=== PATIENT | male | born 1970 | race Caucasian/White ===

== ENCOUNTER 2018-02-16 11:51 | Emergency (ER) | payer BC ==
[2018-02-16 12:38] VITALS: BP 131/76
--- NOTE | 2018-02-16 12:43 | UC ---
Throat Pain/Nasal Dewayne HPI - HPI Summary HPI Summary: 48 y/o male presents to the urgent care c/o sinus pain and green nasal discharge since 02/06/2018. Pt reports he has tried Tylenol cold and sinus w/o any improvement. Pt reports symptoms started w/ a common cold. He has also tried the oracio pot w/o any relief of symptoms. sinus pain is 4/10 w/ a lot of PND, Rt ear pain and a dry cough. Pt denies fever, SOB, chest pain, abdominal pain, N/V/D, dizziness. - History of Current Complaint Chief Complaint: UCRespiratory Stated Complaint: SINUSES Time Seen by Provider: 02/16/18 12:39 Hx Obtained From: Patient Onset/Duration: Gradual Onset, Lasting Days - 10 days, Still Present, Worse Since - 2 days Severity: Moderate Pain Intensity: 4 Pain Scale Used: 0-10 Numeric Cough: Nonproductive Associated Signs & Symptoms: Positive: Sinus Discomfort, Nasal Discharge. Negative: Dysphagia, Fever - Epiglottits Risk Factors Epiglottis Risk Factors: Negative - Allergies/Home Medications Allergies/Adverse Reactions: Allergies Allergy/AdvReac Type Severity Reaction Status Date / Time potatoe Allergy Rash, Uncoded 03/28/16 13:45 Difficulty Breathing PMH/Surg Hx/FS Hx/Imm Hx Previously Healthy: Yes Cardiovascular History: Hypertension Other Neurological History: MS - Surgical History Surgical History: None - Family History Known Family History: Positive: Cardiac Disease, Diabetes - Social History Occupation: Employed Full-time Lives: With Family Alcohol Use: Occasionally Substance Use Type: None Smoking Status (MU): Never Smoked Tobacco - Immunization History Most Recent Influenza Vaccination: February 2016 Review of Systems Constitutional: Negative Skin: Negative Eyes: Negative ENT: Ear Ache - Rt ear pain, Nasal Discharge - green, Sinus Congestion, Sinus Pain/Tenderness Respiratory: Cough - dry Cardiovascular: Negative Gastrointestinal: Negative Genitourinary: Negative Motor: Negative Neurovascular: Negative Musculoskeletal: Negative Neurological: Headache Psychological: Negative Is Patient Immunocompromised?: No All Other Systems Reviewed And Are Negative: Yes Physical Exam - Summary Physical Exam Summary: Vitals: reviewed General: Well developed, well-nourished male patient with NAD. Head and face: Normocephalic and atraumatic, Positive tenderness over the frontal and maxillary sinuses.. Eyes: PERRLA, EOMI x 2. Normal conjunctiva. No eye discharge. ENT: Ears and TM with normal limits. Nose: edematous and erythematous nasal mucosa with with yellowish discharge and erythematous mucosa. Pharynx with erythema, no exudate. +green PND Neck: Supple, no JVD, no carotid bruits and no lymphadenopathy. Lungs: clear, no rales, no rhonchi, no wheezes. CVS: RRR, S1 and S2 present no murmurs or gallops appreciated. Abdomen: soft nontender with positive bowel sounds. Extremities: no edema noted. Neuro: WNL. Skin: warm and dry Triage Information Reviewed: Yes Vital Signs: Initial Vital Signs Temp 97.9 F 02/16/18 12:33 Pulse 68 02/16/18 12:33 Resp 14 02/16/18 12:33 BP 131/76 02/16/18 12:33 Pulse Ox 100 02/16/18 12:33 Throat Pain/Nasal Course/Dx - Course Course Of Treatment: 48 y/o male presents to the urgent care c/o sinus pain and green nasal discharge since 02/06/2018. Pt reports he has tried Tylenol cold and sinus w/o any improvement. Pt reports symptoms started w/ a common cold. He has also tried the oracio pot w/o any relief of symptoms. sinus pain is 4/10 w/ a lot of PND, Rt ear pain and a dry cough. Pt denies fever, SOB, chest pain, abdominal pain, N/V/D, dizziness. Hx obtained. Pt w/ Acute bacterial sinusitis on examination. Pt with 10 days of symptoms getting worse. Pt Rx Augmentin PO and flonase nasal spray. Discharge instructions explained to Pt. Advised to Return to the clinic or PCP if symptoms do not improve.Pt understood and agreed with plan of care. - Differential Dx/Diagnosis Differential Diagnosis/HQI/PQRI: Influenza, Laryngitis, Pharyngitis, Sinusitis, URI Provider Diagnoses: 1- Acute bacterial sinusitis Discharge - Sign-Out/Discharge Documenting (check all that apply): Patient Departure - D/C home All imaging exams completed and their final reports reviewed: No Studies - Discharge Plan Condition: Stable Disposition: HOME Prescriptions: Amoxicillin/Clavulanate TAB* [Augmentin TAB 875*] 875 mg PO BID #20 tab Fluticasone NASAL SPRAY 50MCG* [Flonase NASAL SPRAY 50MCG*] 2 spray BOTH NARES DAILY #1 btl Patient Education Materials: Sinusitis (ED) Referrals: John Brasher DO [Primary Care Provider] - 3 Days Additional Instructions: 1- Please increase fluid intake and rest. take full course of antibiotic to avoid resistance 2-Use Flonase as directed to help drain fluid. Also buy saline drops to clear sinuses 3-Return to the clinic or PCP in 3 days if symptoms do not improve for further management and treatment - Billing Disposition and Condition Condition: STABLE Disposition: Home
== END 2018-02-16 13:12 | disposition home or self-care (01) ==
LOC: UCCORT 11:51
DX: J01.90 Acute sinusitis, unspecified (principal); B96.89 Other specified bacterial agents as the cause of diseases classified elsewhere; I10 Essential (primary) hypertension
CPT/HCPCS: 99212; G0463

== ENCOUNTER 2018-06-02 12:46 | Day surgery (SDC) | payer BC ==
[~2018-06-02 12:46] MED LIST: Buffered Lidocaine 1% SYRIN* 1 ML/SYRINGE INTRADERM ONE; Lactated Ringers 1000 ML Bag* 1,000 ML IV SCH
[2018-06-02] MEDS ORDERED: Lidocaine 2% PF * 5 ML VIAL ONE (14:38)
[2018-06-02] MEDS ORDERED: Succinylcholine* 20 MG/ML 10 ML VIAL ONE (14:39)
[2018-06-02] MEDS ORDERED: fentaNYL* 50 MCG/ML 2 ML VIAL (100 MCG VIAL) ONE ×2 (14:40→16:51)
[2018-06-02] MEDS ORDERED: Midazolam* 1 MG/ML 2 ML VIAL (2 MG) ONE (14:40)
[2018-06-02] MEDS ORDERED: DiMENhydriNATE IV* 50 MG/ML VIAL IV PUSH PRN (14:42)
[2018-06-02] MEDS ORDERED: Naloxone* 0.4 MG/ML 1 ML VIAL IV PRN (14:42)
[2018-06-02] MEDS ORDERED: oxyCODONE TAB* 5 MG TAB PO PRN (14:42)
[2018-06-02] MEDS ORDERED: Acetaminophen IV 1GM/100ML * 1,000 MG/100 ML VIAL IVPB ONE (14:42)
[2018-06-02] MEDS ORDERED: fentaNYL* 50 MCG/ML 2 ML VIAL (100 MCG VIAL) IV PRN (14:42)
[2018-06-02] MEDS ORDERED: Metoclopramide IV* 5 MG/ML 2 ML VIAL ONE (15:44)
[2018-06-02] MEDS ORDERED: Dexamethasone IV* 4 MG/ML 1 ML (4 MG) ONE ×2 (15:44→15:51)
[2018-06-02] MEDS ORDERED: Ondansetron INJ* 2 MG/ML VIAL ONE (15:44)
[2018-06-02] MEDS ORDERED: Acetaminophen IV 1GM/100ML * 100 ML ONE (16:32)
[2018-06-02] MEDS ORDERED: oxyCODONE TAB* 5 MG TAB ONE (16:51)
[2018-06-02 17:44] VITALS: BP 139/81
--- NOTE | 2018-06-02 20:56 | OP ---
DATE OF OPERATION: 06/02/18 - [facility] DATE OF : 66 SURGEON: Lonnie Ordaz M.D. PRE-OP DIAGNOSES: Nasopharyngeal mass, adenoid hypertrophy. POST-OP DIAGNOSES: Nasopharyngeal mass, adenoid hypertrophy. OPERATIVE PROCEDURE: Biopsy of nasopharynx and adenoidectomy. BRIEF HISTORY: This pleasant 48-year-old gentleman, immunocompromised because of some medical management for MS, was noted to have serous effusion and then subsequently developed serous effusion of both ears. This was not following respiratory infection. Nasal endoscopy in the office showed a large nasopharyngeal swelling most likely adenoidal hypertrophy, somewhat suspicious in nature for a possibility of non-Hodgkin type lymphoma. He had no other symptoms. DESCRIPTION OF PROCEDURE: The patient was taken to the operating room. General anesthetic was given. The patient was intubated. The tongue, mandible , and soft palate were retracted. Mirror was used to examine the nasopharyngeal area. Previously noted hypertrophy of the adenoids was significantly reduced in size; however, I did cup forceps biopsy of several different sites of the nasopharynx and subsequently Coblator and bipolar dissection of the adenoid tissue was carried out. Once this obtained and completed, hemostasis was obtained. The patient was awakened, extubated, and sent to the recovery room in stable condition. Instrument and sponge counts were correct. Blood loss minimal. [id number]/[facility] #: [id number] MTDD
== END 2018-06-02 17:46 | disposition home or self-care (01) ==
LOC: OR 12:46
PROVIDERS: ATTEND Otolaryngology
DX: J35.2 Hypertrophy of adenoids (principal); H65.23 Chronic serous otitis media, bilateral; G35 Multiple sclerosis
CPT/HCPCS: 88184; 88187; 88188; 88189; 88305; 88333; A9270-GY; J0330; J1100; J2250; J2405; J2765; J3010

== ENCOUNTER 2018-07-16 10:46 | Emergency (ER) | payer BC ==
[2018-07-16 12:13] VITALS: BP 135/76
--- NOTE | 2018-07-16 12:31 | UC ---
Respiratory Complaint HPI - HPI Summary HPI Summary: 48 yo male with sinus pressure and pain x 1 1/2 -2 wks no fever upper teeth and gums sensitive no cp or sob - History of Current Complaint Chief Complaint: UCRespiratory Stated Complaint: SINUS CONGESTION, HEADACHE Time Seen by Provider: 07/16/18 12:25 Hx Obtained From: Patient Onset/Duration: Gradual Onset, Lasting Days, Lasting Weeks Timing: Constant Severity Initially: Mild Severity Currently: Moderate Pain Intensity: 4 Pain Scale Used: 0-10 Numeric Character: Cough: Nonproductive Aggravating Factors: Nothing Alleviating Factors: Nothing Associated Signs And Symptoms: Positive: Nasal Congestion, Sinus Discomfort - Allergies/Home Medications Allergies/Adverse Reactions: Allergies Allergy/AdvReac Type Severity Reaction Status Date / Time potato Allergy Rash And Verified 07/16/18 12:07 Itching Home Medications: Home Medications Cholecalciferol TAB* [Vitamin D TAB*] 1,000 unit PO DAILY 07/16/18 [History Confirmed 07/16/18] [place]-3 Fatty Acids (Nf) [Fish Oil (NF)] 1,000 mg PO DAILY 07/16/18 [History Confirmed 07/16/18] Rosuvastatin (NF) [Crestor (NF)] 5 mg PO 1700 07/16/18 [History Confirmed ] PMH/Surg Hx/FS Hx/Imm Hx Previously Healthy: Yes Endocrine History: Dyslipidemia Cardiovascular History: Hypertension - Surgical History Surgical History: Yes Surgery Procedure, Year, and Place: Adnoidectomy, 2019, [place] - Family History Known Family History: Positive: Hypertension Negative: Diabetes - Social History Alcohol Use: Occasionally Substance Use Type: None Smoking Status (MU): Never Smoked Tobacco Have You Smoked in the Last Year: No - Immunization History Most Recent Influenza Vaccination: February 2016 Review of Systems All Other Systems Reviewed And Are Negative: Yes Constitutional: Positive: Negative Skin: Positive: Negative Eyes: Positive: Negative ENT: Positive: Dental Pain, Nasal Discharge, Sinus Congestion, Sinus Pain/ Tenderness Respiratory: Positive: Cough Cardiovascular: Positive: Negative Gastrointestinal: Positive: Negative Genitourinary: Positive: Negative Motor: Positive: Negative Neurovascular: Positive: Negative Musculoskeletal: Positive: Negative Neurological: Positive: Negative Psychological: Positive: Negative Physical Exam Triage Information Reviewed: Yes Appearance: Well-Appearing, No Pain Distress, Well-Nourished Vital Signs: Initial Vital Signs Temp 98.4 F 07/16/18 12:06 Pulse 70 07/16/18 12:06 Resp 16 07/16/18 12:06 BP 135/76 07/16/18 12:06 Pulse Ox 99 07/16/18 12:06 Vital Signs Reviewed: Yes Eyes: Positive: Conjunctiva Clear ENT: Positive: Nasal congestion, Nasal drainage, Sinus tenderness, Uvula midline. Negative: Trismus, Muffled voice, Hoarse voice Neck: Positive: Supple, Nontender, No Lymphadenopathy Respiratory: Positive: Lungs clear, Normal breath sounds, No respiratory distress, Respiratory distress Cardiovascular: Positive: RRR, No Murmur, Pulses Normal Musculoskeletal: Positive: ROM Intact, No Edema Neurological: Positive: Alert Psychological Exam: Normal Skin Exam: Normal Respiratory Course/Dx - Differential Dx/Diagnosis Provider Diagnosis: Acute sinusitis Discharge - Sign-Out/Discharge Documenting (check all that apply): Patient Departure All imaging exams completed and their final reports reviewed: No Studies - Discharge Plan Condition: Stable Disposition: HOME Prescriptions: Amoxicillin PO (*) [Amoxicillin 875 MG (*)] 875 mg PO BID #20 tab Patient Education Materials: Sinusitis (ED) Referrals: John Brasher DO [Primary Care Provider] - 5 Days (if not improved) - Billing Disposition and Condition Condition: STABLE Disposition: Home
== END 2018-07-16 12:40 | disposition home or self-care (01) ==
LOC: UCCORT 10:46
DX: J01.90 Acute sinusitis, unspecified (principal); E78.5 Hyperlipidemia, unspecified; I10 Essential (primary) hypertension; Z79.899 Other long term (current) drug therapy; Z91.018 Allergy to other foods
CPT/HCPCS: 99212; G0463